=== PATIENT | male | born 1930 | race Caucasian/White ===

== ENCOUNTER 2017-04-07 06:37 | Inpatient (IN) | payer MEDICARE, OTHER, MEDICAID ==
[~2017-04-07] VITALS: Ht 177.8 cm; Wt 100.7 kg
[2017-04-07] VITALS (7 sets, daily range): BP systolic 134–159; BP diastolic 46–89
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
--- NOTE | ~2017-04-07 | WRIGHTHP ---
[place], [place] PATIENT HISTORY AND PHYSICAL EXAM NAME: GRECIA PIZARRO [facility] #: [id number] UNIT #: [id number] ROOM: 425 DOCTOR: RY ROSE MD BIRTHDATE: [birth year] DOS: 04/08/2017 HISTORY OF PRESENT ILLNESS: This patient is admitted to the hospital on 04/07/2017. The patient comes in with complaints of a high-grade fever of 101.3 at the [facility] with an oxygen saturation in the low 80s on room air. So the patient was sent out to the Emergency Room where he was evaluated and was thought to have possibility of acute bronchitis with acute exacerbation of COPD and was admitted. He denies having any complaints this morning, but wants to go back to the [facility]. Denies any chest pains or palpitations, did not have any abdominal pain, nausea, any emesis. PAST MEDICAL HISTORY: Significant for, 1. History of MRSA pneumonia for which he had a prolonged hospitalization last year. 2. Chronic atrial fibrillation, on long-term use of anticoagulant. 3. Parkinson's. 4. 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 5. Benign hypertension. 6. Protein-calorie malnutrition, moderate. 7. Frailty with multiple falls. MEDICATIONS: Medications that the patient is currently on are Flonase nasal spray, Xalatan eyedrops, eyedrops, timolol eyedrops, Eliquis 2.5 b.i.d., atorvastatin 20 daily, carbidopa levodopa 1 tablet q.i.d., citalopram 20 daily, Lasix 20 daily, metoprolol 50 twice a day, omeprazole 20 daily, pramipexole 0.25 t.i.d., vitamin D 400 units daily. SOCIAL HISTORY: Nonsmoker, does not use any alcohol. He is a resident of [facility]. PHYSICAL EXAMINATION: GENERAL: He is awake and alert and oriented. He has audible wheezing. VITAL SIGNS: Pressure is 140/68, pulse of 66, respirations 18, temperature 98.7. LUNGS: Diminished breath sounds, scattered wheezes. HEART: Regular. ABDOMEN: Obese, soft, nontender. EXTREMITIES: Without any edema. Some stasis dermatitis changes can be seen. ASSESSMENT AND PLAN: 1. The patient admitted with acute exacerbation of chronic obstructive pulmonary disease. The patient is placed on breathing treatments. We will add IV steroids and Pulmicort. Consult Dr. Vaughn for possibility of bronchoscopy. 2. Acute bronchitis with history of methicillin-resistant Staphylococcus aureus pneumonia, IV doxycycline will be ordered. Again, bronchoscopy will help give us a better specimen. 3. Chronic atrial fibrillation, on Eliquis, which will be continued. 4. Benign hypertension, controlled. [place], [place] PATIENT HISTORY AND PHYSICAL EXAM NAME: GRECIA PIZARRO UNIT #: [id number] ROOM: 425 DOCTOR: RY ROSE MD BIRTHDATE: [birth year] RY ROSE MD CM:HISPHYS:PATIENT HISTORY AND PHYSICAL EXAMINATION 0758 7 RY ROSE MD 04/08/17817 interface
--- NOTE | ~2017-04-07 | PR ---
[place], [place] PROGRESS NOTE NAME: GRECIA PIZARRO [facility] #: [id number] UNIT #: [id number] ROOM: 425 DOCTOR: FRANK EUBANKS MD BIRTHDATE: [birth year] DOS: 04/09/2017 SUBJECTIVE: The patient with complaints of shortness of breath and dyspnea with slightest exertion. OBJECTIVE: GENERAL APPEARANCE: The patient is alert and oriented x 3, in no visible distress. HEENT AND NECK: Exam within normal limits. CARDIOVASCULAR SYSTEM: Heart rate is regular in rate and rhythm. S1 and S2 normally audible. LUNGS: Decreased breath sounds, some expiratory wheezing. ABDOMEN: Soft, nontender. No obvious organomegaly. Bowel sounds are present. EXTREMITIES: Without significant cyanosis or edema. IMPRESSION: 1. Exacerbation of chronic obstructive pulmonary disease being treated with breathing treatments and bronchodilators. Dr. Vaughn is following. Bronchoscopy to be considered. 2. Methicillin-resistant staphylococcus aureus pneumonia. The patient on IV doxycycline. 3. Chronic atrial fibrillation. The patient anticoagulated with Eliquis. 4. Benign essential hypertension with controlled blood pressures. 5. Parkinson's disease and disability. The patient on physical therapy. FRANK EUBANKS MD CM:SAILAJATRANS [id number] FRANK EUBANKS MD 04/10/17 0949 interface
--- NOTE | ~2017-04-07 | DS ---
[place], [place] DISCHARGE SUMMARY NAME: GRECIA PIZARRO [facility] #: [id number] UNIT #: [id number] ROOM: 425 DOCTOR: FRANK EUBANKS MD BIRTHDATE: [birth year] DOS: 04/10/2017 DISCHARGE DIAGNOSES: 1. Exacerbation of chronic obstructive pulmonary disease, resolved with treatment. 2. Methicillin-resistant Staphylococcus aureus pneumonia, patient treated. 3. Chronic atrial fibrillation, the patient anticoagulated with Eliquis. 4. Benign essential hypertension. 5. Parkinson disease and advanced disability. 6. Moderate protein-calorie malnutrition. 7. Generalized weakness, adult failure to thrive with multiple falls. HOSPITAL COURSE: The patient was admitted by Dr. Cesar for high-grade fever from a snf and hypoxemia. 1. The patient was admitted and Dr. Vaughn, the scroll machine operator, followed the patient. The patient was treated with antibiotics and breathing improved. 2. MRSA positive pneumonia, treated with IV doxycycline. Bronchoscopy was repeated. 3. Chronic atrial fibrillation with controlled heart rate, patient anticoagulated with Eliquis. 4. Benign essential hypertension with controlled blood pressures. DISCHARGE MANAGEMENT: Lipitor 20 mg a day, DuoNebs q.i.d., Pulmicort 0.5 mg b.i.d., Comtan 200 mg q.i.d., furosemide 20 mg a day, citalopram 20 mg a day, Sinemet q.i.d. 25/100 mg, apixaban 2.5 mg b.i.d., Alphagan eye drops 0.2% b.i.d., pramipexole 0.25 mg t.i.d., omeprazole 20 mg a day, timolol 1 drop daily, Flonase 2 sprays each nostril once a day, Xalatan eye drops daily, metoprolol 50 mg b.i.d., doxycycline 100 mg b.i.d. for 10 days. FRANK EUBANKS MD CM:DISCHARG 1726 [id number] FRANK EUBANKS MD 04/12/17 0147 interface
--- NOTE | ~2017-04-07 | PR ---
[place], [place] PROGRESS NOTE NAME: GRECIA PIZARRO [facility] #: [id number] UNIT #: [id number] ROOM: 425 DOCTOR: MIKE CASTAÑEDA MD,MARIO BIRTHDATE: [birth year] DOS: 04/09/2017 PULMONARY PROGRESS NOTE SUBJECTIVE: He has been still noted with some chest congestion and coughing, but expectorating sputum. Denies symptoms of chest pain or abdominal pain. Denies symptoms of hemoptysis. OBJECTIVE: VITAL SIGNS: Normal temperature, respiratory rate 20, heart rate of 104, blood pressure 147/84. The pulse oxygen saturation on 2 liters nasal cannula 96% saturation recorded. HEENT: Examination shows head was atraumatic. Eyes nonicterus. NECK: Supple. CARDIOVASCULAR SYSTEM: S1, S2 audible. LUNGS: Noted without any wheezing or crackles at the present time. ABDOMEN: Soft, nontender. LABORATORY DATA: Blood culture for the patient on 07 of April for this patient noted no bacterial growth. Final culture results were pending. IMPRESSION: 1. The patient was noted with improving acute exacerbation of bronchial asthma and acute tracheobronchitis with the cough intermittently noted for the patient with gradual improvement. 2. History of chronic parkinsonism. PLAN OF TREATMENT: No changes from the pulmonary standpoint. The patient is responding to treatment. Continue bronchodilators, oxygen supplementation, other treatment plan as in progress. Usual care. Supportive therapy and other plan and management. MARIO MCKEON MD CM:PNTRANS [id number] MARIO CASTAÑEDA MD 04/10/17 0429 interface
[~2017-04-07 06:37] MED LIST: ALPHAGAN-P 0.2%5 ML OPH; AMIODARONE HCL200 MG PO; AMLODIPINE5 MG PO; ASACOL HD800 M1 PO; BACTROBAN22 TP; BETIMOL 2.5 ML2.5 M1 OPH; CARBIDOPA & LEV1 TA1 PO; CELESTONE PO; CHONDROITIN/GLU1 TA5 PO; COUMADIN2 MG PO; COUMADIN2.5 M1 PO; COUMADIN4 M2 PO; CRESTOR20 MG PO; Coumadin2 MG PO; DAYPRO600 M1 PO; DIPROSONE 0.05%15 GM T; ELIQUIS2.5 M1 PO; FERROUS SULFAT325 MG PO; FISH OIL 10001000 MG PO; FISH OIL1 IU PO; FLONASE ALLERG9.9 ML NAS; FUROSEMIDE20 MG PO; GUAIFENESIN600 MG PO; HYDROCODONE BIT1 T11 PO; KENALOG 0.5% CR15 GM PO; LASIX20 MG PO; LIPITOR20 MG PO; LIPITOR40 MG PO; LISINOPRIL40 MG PO; LOPRESSOR50 M1 PO; Lopressor25 MG PO; METFORMIN500 MG PO; METOPROLOL50 MG PO; MINER PO; MIRAPEX PO; MOM30 M1 PO; MUCINEX ER600 MG PO; MULTIVITAMIN PO; NATURE'S BLEND F1 MG PO; NOVOLOG10 ML IV; OMEPRAZOLE D/R20 MG PO; PERI-COLACE 501 TAB PO; PRAMIPEXOLE D0.25 MG PO; PRAVACHOL40 MG PO; REGLAN10 MG PO; SINEMET 25-1001 TA1 PO; STOOL SOFTENER PO; SULFASALAZINE500 M1 PO; VANCOCIN HCL IV; VANCOMYCIN HYD500 MG IV; VITAMIN D31 LIQ PO; VITAMIN E400 I1 PO; VITAMIN E400 IU PO; WARFARIN SOD5 MG PO; XALATAN 0.005%2.5 ML INTRAOC; ZOLOFT50 MG PO; [UNRECOGNIZED DRUG - OTHER] PO; [UNRECOGNIZED DRUG - OTHER] PO
[2017-04-07] MEDS ORDERED: CELEXA20 MG PO (07:00)
[2017-04-07] MEDS ORDERED: PRAMIPEXOLE D0.25 MG PO (07:01)
[2017-04-07] MEDS ORDERED: XALATAN 0.005%2.5 ML INTRAOC (07:01)
[2017-04-07] MEDS ORDERED: VITAMIN E400 UNI1 PO (07:01)
[2017-04-07] MEDS ORDERED: METOPROLOL TART50 M1 PO (07:02)
[2017-04-07] MEDS ORDERED: BRIMONIDINE TART5 ML OPH (07:02)
[2017-04-07] MEDS ORDERED: ATORVASTATIN CA20 M1 PO (07:03)
[2017-04-07] MEDS ORDERED: CARBIDOPA-LEVO1 EAC1 PO (07:04)
[2017-04-07] MEDS ORDERED: FUROSEMIDE20 M1 PO (07:05)
[2017-04-07] MEDS ORDERED: ELIQUIS2.5 M1 PO (07:05)
[2017-04-07] MEDS ORDERED: OMEPRAZOLE20 M2 PO (07:05)
[2017-04-07] MEDS ORDERED: FLUOCINONIDE0.05% T (07:06)
[2017-04-07] MEDS ORDERED: TIMOLOL MALEATE5 M2 OPH (07:07)
[2017-04-07] MEDS ORDERED: FLUTICASON0.05 MG/Ac NAS (07:07)
[2017-04-07] MEDS ORDERED: FISH OIL 1,001000 MG PO (07:08)
[2017-04-07 07:20] LABS: BASO % 0.4 % (0.0-1.0); EOS # 0.1 10*3/uL (0.0-0.4); EOS % 2.9 % (1.0-4.0); HEMATOCRIT 40.1 % (42.0-52.0); LYMPH # 0.7 10*3/uL (1.3-4.4); LYMPH % 15.4 % (27.0-41.0); MEAN CELL VOLUME 94.8 fl (80.0-94.0); MEAN CORPUSCULAR HGB 30.7 pg (27.0-31.0); MEAN CORPUSCULAR HGB CONC 32.4 g/dl (33.0-37.0); MEAN PLATELET VOLUME 9.6 fl (9.6-12.3); MONO # 0.4 10*3/uL (0.1-1.0); MONO % 7.9 % (3.0-9.0); NEUT # 3.5 10*3/uL (2.3-7.9); NEUT % 73.2 % (47.0-73.0); PLATELET COUNT AUTOMATED 189 10*3/uL (130-400); RED BLOOD COUNT 4.23 10*6/uL (4.50-5.90); RED CELL DISTRI WIDTH 15.3 % (0-14.5); WHITE BLOOD COUNT 4.8 10*3/uL (4.8-10.8)
[2017-04-07 07:27] LABS: INTERNATIONAL NORM RATIO 1.1 (2.0-3.5)
[2017-04-07 07:40] LABS: ALBUMIN 3.1 gm/dl (3.1-4.5); ALKALINE PHOSPHATASE 96 U/L (45-117); BILIRUBIN, TOTAL 0.8 mg/dl (0.2-1.0); BUN 15 mg/dl (7-24); CARBON DIOXIDE 29 mmol/L (21-32); CHLORIDE 104 mmol/L (98-107); EST GLOM FILT AFRICAN AMERICAN > 60 ml/min; GLUCOSE 107 mg/dL (65-99); POTASSIUM 4.1 mmol/L (3.5-5.1); SGOT/AST 21 IU/L (3-35); SGPT/ALT 9 U/L (12-78); SODIUM 139 mmol/L (136-145); TOTAL PROTEIN 8.1 gm/dL (6.4-8.2)
[2017-04-07 07:41] LABS: TROPONIN I < 0.015 ng/ml (<0.045)
[2017-04-07 10:04] LABS: BILIRUBIN NEGATIVE (NEGATIVE); BLOOD 3+ (NEGATIVE); CLARITY SL CLOUDY (CLEAR); COLOR YELLOW (YELLOW); GLUCOSE NEGATIVE (NEGATIVE); KETONE NEGATIVE (NEGATIVE); LEUKO ESTERASE NEGATIVE (NEGATIVE); NITRITE NEGATIVE (NEGATIVE); PROTEIN 1+ (NEGATIVE); SPECIFIC GRAVITY 1.015 (1.005-1.030)
[2017-04-07 10:14] LABS: RBC TNTC rbc/hpf (0-2); URINE REFLEX COMMENT YES (NO)
[2017-04-07 10:52] LABS: ABG BASE EXCESS 2.7 mmol/L (-2.0-2.0); ABG CO2 CONTENT 28.5 mmol/L (23-27); ABG HCO3 27.1 mmol/l (22-26); ABG TEMPERATURE 98.6 F (98.0-99.0); ARTERIAL BLOOD GAS PH 7.415 (7.35-7.45); ARTERIAL BLOOD GAS PO2 67.1 mmHg (80-90)
[2017-04-08 00:27] VITALS: BP 140/68
[2017-04-08 08:00] VITALS: BP 150/72
[2017-04-08 12:00] VITALS: BP 145/83
[2017-04-08 16:00] VITALS: BP 141/93
[2017-04-08 20:00] VITALS: BP 134/75
[2017-04-09] VITALS: BP 124/83
[2017-04-09 08:00] VITALS: BP 147/91
[2017-04-09 12:00] VITALS: BP 147/84
[2017-04-09 16:26] VITALS: BP 153/88
[2017-04-09 20:00] VITALS: BP 156/85
[2017-04-10] VITALS: BP 134/75
[2017-04-10 08:00] VITALS: BP 147/94
[2017-04-10 12:00] VITALS: BP 138/68
[2017-04-10 16:00] VITALS: BP 131/68
[2017-04-10] MEDS ORDERED: DOXYCYCLINE100 MG PO (17:08)
== END 2017-04-10 17:42 | disposition other institution (70) | DRG 177 ==
LOC: ED 06:37 → 4E 09:39 → EDHOLD 09:39 → 4E 09:55
PROVIDERS: Emergency Medicine Emergency Medical Services
DX: J15.212 Pneumonia due to Methicillin resistant Staphylococcus aureus (principal); J96.01 Acute respiratory failure with hypoxia; E44.0 Moderate protein-calorie malnutrition; L03.115 Cellulitis of right lower limb; I48.2 Chronic atrial fibrillation; G20 Parkinson's disease; J44.0 Chronic obstructive pulmonary disease with (acute) lower respiratory infection; I10 Essential (primary) hypertension; J44.1 Chronic obstructive pulmonary disease with (acute) exacerbation; R62.7 Adult failure to thrive; J20.9 Acute bronchitis, unspecified; R29.6 Repeated falls; Z96.651 Presence of right artificial knee joint; Z88.0 Allergy status to penicillin; Z88.2 Allergy status to sulfonamides; Z88.8 Allergy status to other drugs, medicaments and biological substances; Z88.6 Allergy status to analgesic agent; Z68.32 Body mass index [BMI] 32.0-32.9, adult

== ENCOUNTER → 2017-09-01 | Outpatient (CLI) | payer MEDICARE, OTHER, MEDICAID ==
[~2017-09-01] MED LIST changes: +ATORVASTATIN CA20 M1 PO; +BRIMONIDINE TART5 ML OPH; +CARBIDOPA-LEVO1 EAC1 PO; +CELEXA20 MG PO; +DOXYCYCLINE100 MG PO; +FISH OIL 1,001000 MG PO; +FLUOCINONIDE0.05% T; +FLUTICASON0.05 MG/Ac NAS; +FUROSEMIDE20 M1 PO; +METOPROLOL TART50 M1 PO; +OMEPRAZOLE20 M2 PO; +TIMOLOL MALEATE5 M2 OPH; +VITAMIN E400 UNI1 PO
== END | disposition home or self-care (01) ==
LOC: ORTHO 00:43
DX: M19.012 Primary osteoarthritis, left shoulder (principal)

== ENCOUNTER 2017-12-07 21:08 | Inpatient (IN) | payer MEDICARE, OTHER, MEDICAID ==
[~2017-12-07] VITALS: Ht 177.8 cm; Wt 95.8 kg
--- NOTE | ~2017-12-07 | PR ---
[place], [place] PROGRESS NOTE [id number] UN[facility] #: [id number] ROOM: 516 DOCTOR: SARAH SAHNI DO BIRTHDATE: [birth year] DOS: 12/10/2017 SUBJECTIVE: Patient is seen and examined at bedside. Patient was sitting upright in no acute distress. Patient reports that his breathing has dramatically improved since yesterday, that he no longer has issues with shortness of breath or cough or sputum production. No new complaints at this time. VITAL SIGNS: Temperature is 97.8, pulse is 115, respirations 22, blood pressure 160/86, pulse ox is 96% on 2 liters nasal cannula. LABORATORY DATA: White count 6.7, hemoglobin 13.9, hematocrit 44.7, platelets 158. Chemistries stable, no change from yesterday, glucose 289. Blood cultures remain negative. Urine culture positive for 25,000 colony-forming units of light gram-positive cocci. MRSA surveillance of the nares was positive. Chest x-ray from yesterday shows no acute cardiopulmonary. Exam degraded by the rotation to the right side. PHYSICAL EXAMINATION: GENERAL APPEARANCE: Patient is alert, awake and oriented x 3, no acute distress. HEENT: Eyes are clear with no injection. Nares are patent. Oral mucosa is moist. NECK: Supple, nontender. RESPIRATORY: Lungs are clear to auscultation bilaterally, no rales, rhonchi or wheezing. CARDIOVASCULAR: Regular rate and rhythm. S1, S2 noted. ABDOMEN: Soft, nontender with positive bowel sounds. EXTREMITIES: Lower extremities are clear of edema, erythema, cyanosis or clubbing. NEUROLOGIC: Patient has a noted parkinsonian tremor; however, no focal deficits are appreciated or acute changes on exam. ASSESSMENT AND PLAN: 1. Acute respiratory failure, likely secondary to fluid overload. Patient responded to diuresis appropriately and respiratory status improved dramatically after several hours of IV diuretics administered yesterday. Patient is asymptomatic at this time. 2. Parkinsonism. 3. Obesity. 4. Atrial fibrillation. 5. Hyperglycemia. TREATMENT PLAN: At this time, patient is on Mucinex. nebs were stopped and patient was started on DuoNebs with good results. Antibiotics were adjusted to Levaquin. Continue all supportive care. All medications were reviewed and adjusted today based on the patient's clinical presentation. We will continue to follow the patient. No change in current therapy at this time. Patient has stabilized medically and we will continue to follow. [place], [place] PROGRESS NOTE NAME: GRECIA PIZARRO [facility] UNIT #: [id number] ROOM: 6 DOCTOR: SARAH SAHNI DO BIRTHDATE: [birth year] SARAH SAHNI DO MARIO MCKEON MD CM:STEFANO 1321 12 SARAH SAHNI DO 12/10/17 231 interface
--- NOTE | ~2017-12-07 | PR ---
[place], [place] PROGRESS NOTE NAME: GRECIA PIZARRO [facility] #: [id number] UNIT #: [id number] ROOM: 516 DOCTOR: MIKE CASTAÑEDA MD,MARIO BIRTHDATE: [birth year] DOS: 12/10/2017 SUBJECTIVE: The patient was independently seen with [id number] encounter, history was confirmed. Physical examination performed. ____ was completed personally today's visit. Note done by the vp medical was approved. The patient has been showing significant reduction and improvement in respiratory symptom last 24 hours with reduction of the symptoms of shortness of breath, coughing, or chest congestion. He has been noted very comfortable. He was still noted with other tremor related to parkinsonism. PHYSICAL EXAMINATION: GENERAL: The patient was noted fully awake and alert, cooperative. VITAL SIGNS: Reviewed for the patient was essentially noted as mild tachycardia this morning at 8:00 and 15 beats per minute, blood pressure 160/86. Previous vital signs at midnight were normal. The pulse oxygen saturation recorded as 92% on 2 liters nasal cannula. LUNGS: Noted with minimal wheezing, no crackles. ABDOMEN: Soft, nontender. EXTREMITIES: Without any edema. LABORATORY DATA: CBC essentially noted grossly within normal limits. BMP: Glucose elevated at 289 with BUN 34. IMPRESSION: Progressive resolution improvement in the acute exacerbation of chronic obstructive pulmonary disease, bronchial asthma noted with current plan of management at this time. The patient has been asked about discharge and could be discharged home for the patient at the present time on intravenous corticosteroids for at least 1 week for Solu-Medrol b.i.d. oral antibiotics to be completed at nursing facility prior to switching the patient to tapering dose of prednisone for 12 days. The discharge instruction has been communicated to Dr. Dumont through the nursing staff. MARIO MCKEON MD CM:PNTRANS 1532 27 MRAIO CASTAÑEDA MD 12/10/17 7842 interface
--- NOTE | ~2017-12-07 | WRIGHTHP ---
[place], [place] PATIENT HISTORY AND PHYSICAL EXAM NAME: GRECIA PIZARRO [facility] #: [id number] UNIT #: [id number] ROOM: 516 DOCTOR: FRANK EUBANKS MD BIRTHDATE: [birth year] DOS: 12/07/2017 HISTORY OF PRESENT ILLNESS: The patient is an 87-year-old male with a past medical history of: 1. Chronic obstructive pulmonary disease. 2. Chronic atrial fibrillation, anticoagulated with Eliquis. 3. Benign essential hypertension. 4. Parkinson's disease and advanced disability. 5. Moderate protein-calorie malnutrition. 6. Generalized weakness and adult failure to thrive with history of recurrent falls. 7. Glaucoma. 8. POLLEN ALLERGIES. 9. Mixed hyperlipidemia. HOSPITAL COURSE: The patient presented to the Emergency Department sent over from care home with increased shortness of breath and feeling sick. In the ER, the patient evaluated and found to have acute exacerbation of significant underlying COPD and suspected pneumonitis, also chest congestion. The patient was recommended admission for the management. After admission, the patient has chest congestion and some rales and complains of shortness of breath and cough. No chest pain, no dizziness or fainting episode. No other GI or urinary symptoms. REVIEW OF SYSTEMS: LUNGS: Some chest congestion. CARDIOVASCULAR SYSTEM: No chest pains or palpitations. GASTROINTESTINAL: No nausea, vomiting, diarrhea, constipation. FAMILY HISTORY: Noncontributory. HOME MEDICATIONS: Omeprazole, Lasix, metoprolol, citalopram, apixaban, Lipitor, timolol eye drops with brimonidine eye drops b.i.d., breathing treatments, Sinemet, Flonase nasal spray, MetroGel, clindamycin. ALLERGIES: PENICILLIN, SULFA, ASPIRIN. PHYSICAL EXAMINATION: GENERAL: Awake, alert, oriented to place and person, in no visible distress. Generalized weakness. VITAL SIGNS: Blood pressure 130/82, heart rate of 103 beats per minute, breathing 20 times a minute, temperature 99 degrees Fahrenheit. HEENT AND NECK: Extraocular movements are intact. Sclerae are anicteric. Oral mucosa is moist and clean. No obvious facial weakness. Neck is supple without any lymphadenopathy. No thyromegaly. No JVD. No carotid arterial bruits. LUNGS: Somewhat decrease breath sounds, slight expiratory rhonchi all over. CARDIOVASCULAR SYSTEM: Heart rate is regular in rate and rhythm. S1 and S2 normally audible. No significant murmur or any other abnormal cardiac sounds. ABDOMEN: Soft, nontender. No obvious organomegaly. Bowel sounds are present. No obvious herniation. [place], [place] PATIENT HISTORY AND PHYSICAL EXAM NAME: GRECIA PIZARRO UNIT #: [id number] ROOM: 516 DOCTOR: FRANK EUBANKS MD BIRTHDATE: [birth year] EXTREMITIES: Without significant cyanosis or edema. Warm to touch. CENTRAL NERVOUS SYSTEM: Alert and oriented x 3. Cranial nerves II-XII are intact. Speech is normal. The patient is able to move all extremities. Normal muscle strength. Deep tendon reflexes are equal on both sides. Plantars were downgoing. IMPRESSION AND PLAN: 1. The patient with acute exacerbation of severe underlying chronic obstructive pulmonary disease, being treated with antibiotics, oxygen and corticosteroids along with bronchodilators. Dr. Vaughn, the building serviceman has been consulted to follow. 2. Type 2 diabetes mellitus and hyperglycemia. Blood sugars to be monitored and treated as necessary. I will keep him on no concentrated sweet diet. 3. Mixed hyperlipidemia. I will continue Lipitor. 4. Chronic atrial fibrillation with controlled heart rate. The patient is anticoagulated with apixaban. 5. Glaucoma eyedrops have been continued. 6. The patient with advanced Parkinson's disease and disability, treated with Sinemet and pramipexole. FRANK EUBANKS MD CM:HISPHYS:PATIENT HISTORY AND PHYSICAL EXAMINATION 1042 1128 FRANK EUBANKS MD 12/08/17 1128 interface
--- NOTE | ~2017-12-07 | EKG ---
[place], [place] ELECTROCARDIOGRAM REPORT NAME: GRECIA PIZARRO UNIT #: [id number] ROOM: 516 DOCTOR: JUVENTINO RANDT MD BIRTHDATE: [birth year] DOS: 12/07/2017 TIME: 2141. IMPRESSION: Atrial fibrillation with a controlled ventricular response, left anterior fascicular block, prolonged QT interval. Abnormal ECG. No prior EKGs to compare. Juventino Arndt MD CM:EKGRPT:ELECTROCARDIOGRAM REPORT 1909 19 JUVENTINO ARNDT MD
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
--- NOTE | ~2017-12-07 | PR ---
[place], [place] PROGRESS NOTE NAME: GRECIA PIZARRO [facility] #: [id number] UNIT #: [id number] ROOM: 516 DOCTOR: FRANK EUBANKS MD BIRTHDATE: [birth year] DOS: 12/09/2017 SUBJECTIVE: The patient remains about the same, very weak. OBJECTIVE: GENERAL APPEARANCE: The patient is alert and oriented x 3, in no visible distress. Generalized weakness. VITAL SIGNS: Blood pressure 138/86, heart rate 97 beats per minute, breathing 22 times per minute, temperature 98 degrees Fahrenheit. HEENT AND NECK: Exam within normal limits. CARDIOVASCULAR SYSTEM: Heart rate is regular in rate and rhythm. S1 and S2 normally audible. LUNGS: Clear to auscultation. ABDOMEN: Soft, nontender. No obvious organomegaly. Bowel sounds are present. EXTREMITIES: Without significant cyanosis or edema. IMPRESSION: 1. The patient has acute urinary retention with 1400 mL collected from the Pinto catheter after it was placed. I will start him on Flomax. No urologist available for consult at the hospital. 2. Urinary tract infection with light gram-positive cocci. I will wait for final culture results. 3. Acute exacerbation of severe underlying chronic obstructive pulmonary disease, being treated with corticosteroids, oxygen, and antibiotics and Dr. Vaughn, the certified real estate appraiser is also following. 4. Type 2 diabetes mellitus with blood sugars reasonably under control. Blood sugar of 165. 5. Parkinson's disease and advanced disability. The patient remains on Sinemet. 6. Chronic atrial fibrillation with controlled heart rates. The patient anticoagulated with apixaban. FRANK EUBANKS MD CM:PNTRANS [id number] FRANK EUBANKS MD 12/09/172329 interface
--- NOTE | ~2017-12-07 | DS ---
[place], [place] DISCHARGE SUMMARY NAME: GRECIA PIZARRO [facility] #: [id number] UNIT #: [id number] ROOM: 516 DOCTOR: FRANK EUBANKS MD BIRTHDATE: [birth year] DOS: 12/10/2017 DISCHARGE DIAGNOSES: 1. The patient with acute urinary retention, has a Pinto catheter now. 2. Urinary tract infection with light gram-positive cocci, treated with Levaquin. 3. Acute exacerbation of chronic obstructive pulmonary disease, improved with treatment. 4. Known type 2 diabetes mellitus. 5. Parkinson's disease and disability. 6. Chronic obstructive pulmonary disease. 7. Chronic atrial fibrillation, anticoagulated with Eliquis. 8. Benign essential hypertension. 9. Moderate protein calorie malnutrition. 10. Generalized weakness, adult failure to thrive and recurrent falls. 11. Glaucoma. 12. POLLEN allergies. 13. Mixed hyperlipidemia. HOSPITAL COURSE: The patient was brought to the Emergency Department, sent over from halfway with a comfort care code status for being short of breath and feeling sick. The patient was diagnosed as having acute exacerbation of COPD and suspected pneumonitis and chest congestion. The patient was admitted and treated with antibiotics, oxygen, bronchodilators and Dr. Vaughn, the dyer assistant also followed him. 1. Type 2 diabetes mellitus with some elevation of blood sugars secondary to use of corticosteroids. 2. Corticosteroid-induced hyperglycemia, treated with insulin. 3. Moderate protein calorie malnutrition with an albumin level of 2.8. The patient followed by Dietary. 4. Parkinson's disease with advanced disability, multiple falls and adult failure to thrive. We took fall precautions, use an air mattress and every 2 hour turning. The patient remains on Sinemet. 5. Acute urinary retention with 1400 mL of urine collected in the bag after he was catheterized. We will leave the Pinto catheter in for a week and then try to discontinue it with bladder training. The patient appears to have BPH with urine retention, which is now being treated with Flomax. LABORATORY DATA: Normal serum electrolytes. Albumin level of 2.8. No leukocytosis. Normal CBC. Blood cultures were negative. Urine cultures, final results are pending. They grew 25,000 colonies of gram-positive cocci, very light. Chest x-ray showed no acute changes. DISCHARGE MANAGEMENT: Furosemide 20 mg a day, Flomax 0.4 mg daily, Medrol Dosepak, Mirapex 0.25 mg t.i.d., citalopram 40 mg a day, timolol eyedrops 1 drop each eye twice a day, brimonidine eye which is Alphagan eye drops 0.2% one drop b.i.d., Lipitor 20 mg daily, Lidex 0.05% ointment to skin as needed for outbreaks of psoriasis, Sinemet 25/100 mg q.i.d., omeprazole 20 mg daily, metoprolol 50 mg b.i.d., apixaban 2.5 mg b.i.d., DuoNeb q.i.d., MetroGel to affected skin b.i.d. [place], [place] DISCHARGE SUMMARY NAME: GRECIA PIZARRO UNIT #: [id number] ROOM: [facility] DOCTOR: FRANK EUBANKS MD BIRTHDATE: [birth year] FRANK EUBANKS MD CM:DISCHARG [id number] FRANK EUBANKS MD 12/10/17 1059 interface
--- NOTE | ~2017-12-07 | CON ---
[place], [place] REPORT OF CONSULTATION NAME: GRECIA PIZARRO [facility] #: [id number] UNIT #: [id number] ROOM: 516 DOCTOR: SARAH SAHNI DO BIRTHDATE: [birth year] DOS: 12/09/2017 CHIEF COMPLAINT: Shortness of breath. HISTORY OF PRESENT ILLNESS: This is an 87-year-old male who came in from a [facility] to the ER with a complaint of shortness of breath and cough that had been ongoing for a couple of days. The patient was admitted on the under the service of Dr. Dumont and Dr. Cesar. The patient was admitted with an acute exacerbation of COPD and a suspected CHF exacerbation as well with chest congestion. The patient improved for the first 24 hours; however, on day 2 he did develop worsening shortness of breath and cough and for this reason the pulmonary team was consulted for optimization of his respiratory care. The patient was seen and examined on 12/09/2017 in the morning. The patient continued to complain of cough. He was unable to get anything up out of his lungs with shortness of breath. Otherwise, no new complaints. PAST MEDICAL HISTORY: 1. Chronic obstructive pulmonary disease. 2. Chronic AFib, anticoagulated on Eliquis. 3. Hypertension. 4. Parkinson's disease. 5. Moderate protein calorie malnutrition. 6. Generalized weakness with failure to thrive. 7. Glaucoma. 8. Hyperlipidemia. 9. History of recurrent falls. 10. History of pancolitis, diarrhea. 11. History of MRSA pneumonia. 12. Coronary artery disease. PAST SURGICAL HISTORY: Colonoscopy, right total knee replacement, cystoscopy, right shoulder surgery, lithotripsy, right VATS procedure for medical management of complicated pleural fluid and MRSA. FAMILY HISTORY: Positive for cancer, NH, diabetes and coronary artery disease. SOCIAL HISTORY: The patient is , has 2 children. Denies history of alcohol or drug abuse. The patient has been in a nursing facility for over 20 years. HOME MEDICATIONS: Budesonide, DuoNeb, latanoprost, fluticasone propionate, brimonidine, timolol, acetaminophen, Eliquis, atorvastatin, Sinemet, citalopram, Lasix, Levaquin, metoprolol, omeprazole, pramipexole, vitamin E, Lidex, metronidazole cream. ALLERGIES: PENICILLINS, CANTALOUPE, SULFA, ASPIRIN, CITRIC ACID, ASPARTAME. LABORATORY DATA: White count 7.6, hemoglobin 14.0, hematocrit 44.8, platelet count 163. Chemistry: Sodium 143, potassium 4.2, chloride 105, carbon dioxide 33, BUN 30, creatinine 1, glucose 165, calcium 9.7. Nares were positive for [place], [place] REPORT OF CONSULTATION NAME: GRECIA PIZARRO UNIT #: [id number] ROOM: 516 DOCTOR: SARAH SAHNI DO BIRTHDATE: [birth year] MRSA. Urine was positive with 25,000 colony forming units of light gram-positive cocci. Blood cultures remain negative. Chest x-ray on the showed no radiographic evidence of acute cardiopulmonary process or significant interval change from prior. Chest x-ray from 12/09/2017 this morning is still pending. PHYSICAL EXAMINATION: VITAL SIGNS: Temperature 98.3, pulse is 97, respiratory rate 20, blood pressure 142/80, pulse ox is 96% on 2 liters nasal cannula. GENERAL APPEARANCE: The patient is alert and oriented. He is in mild to moderate respiratory distress. HEENT: Head is atraumatic, normocephalic. Eyes are clear. No injection. Nares are patent. Mucous membranes are moist. NECK: Supple, nontender. CARDIOVASCULAR: S1, S2 appreciated. Irregular rate and rhythm. No murmurs, gallops or rubs. PULMONARY: Rales appreciated in all lung shah. In the bases is worse than apices. No wheezing. No rhonchi. ABDOMEN: Soft and nontender with positive bowel sounds. EXTREMITIES: No edema. No erythema. No clubbing, cyanosis. NEUROLOGIC: No focal deficits appreciated. Parkinsonian tremor. Cranial nerves are grossly intact. SKIN: No rashes. No erythema. REVIEW OF SYSTEMS: GENERAL: The patient denies any dizziness, lightheadedness, fever or chills. HEENT: No discharge. No dysphagia. No postnasal drip. CARDIAC: Denies palpitations or chest pain. RESPIRATORY: The patient complains of shortness of breath and cough which is nonproductive. ABDOMEN: The patient has no complaints of nausea, vomiting, diarrhea, constipation, change in bowel or bladder habits. EXTREMITIES: No joint pain. SKIN: The patient complains of no rashes. IMPRESSION: 1. Acute on chronic respiratory failure with elements of chronic obstructive pulmonary disease exacerbation and congestive heart failure exacerbation. 2. Chronic atrial fibrillation, anticoagulated with Eliquis. 3. Hypertension. 4. Parkinson's. 5. Protein calorie malnutrition. 6. Generalized weakness. 7. Glaucoma 8. Diabetes. PLAN: The patient was switched to IV Lasix b.i.d. Chest x-ray is pending. Antibiotics were adjusted. Steroids were increased from b.i.d. to t.i.d. with DuoNeb being added and AccuNeb being discontinued. We will continue to monitor patient's respiratory status. [place], [place] REPORT OF CONSULTATION NAME: GRECIA PIZARRO UNIT #: [id number] ROOM: 6 DOCTOR: SARAH SAHNI DO BIRTHDATE: [birth year] Thank you for this consult. SARAH SAHNI DO MARIO MCKEON MD CM:CONSTR:REPORT OF CONSULTATION 1238 12/09/17 1909 interface
[~2017-12-07 21:08] MED LIST changes: -CARBIDOPA-LEVO1 EAC1 PO; +CARBIDOPA-LEVO1 EAC6 PO; +DUONEB 3 MG/3 ML3 M1 INH; -FLUTICASON0.05 MG/Ac NAS; +FLUTICASONE P15.8 ML NAS; +Ipratropium Brom3 ML INH; +LEVOFLOXACIN500 MG PO
[2017-12-07 21:53] LABS: BASO % 0.2 % (0.0-1.0); HEMATOCRIT 42.7 % (42.0-52.0); HEMOGLOBIN 13.6 g/dl (14.0-18.0); LYMPH # 0.5 10*3/uL (1.3-4.4); MEAN CORPUSCULAR HGB 31.9 pg (27.0-31.0); MEAN CORPUSCULAR HGB CONC 31.9 g/dl (33.0-37.0); MEAN PLATELET VOLUME 11.2 fl (9.6-12.3); MONO # 0.5 10*3/uL (0.1-1.0); NEUT # 4.2 10*3/uL (2.3-7.9); NEUT % 81.4 % (47.0-73.0); PLATELET COUNT AUTOMATED 162 10*3/uL (130-400); RED BLOOD COUNT 4.27 10*6/uL (4.50-5.90); WHITE BLOOD COUNT 5.1 10*3/uL (4.8-10.8)
[2017-12-07 22:11] LABS: ALKALINE PHOSPHATASE 117 U/L (45-117); BUN 32 mg/dl (7-24); CHLORIDE 103 mmol/L (98-107); CREATININE 1.31 mg/dL (0.70-1.30); POTASSIUM 4.3 mmol/L (3.5-5.1); SGOT/AST 38 IU/L (3-35); SGPT/ALT 13 U/L (12-78); SODIUM 142 mmol/L (136-145); TOTAL PROTEIN 7.7 gm/dL (6.4-8.2); TROPONIN I 0.025 ng/ml (<0.045)
[2017-12-07 22:15] VITALS: BP 137/104
[2017-12-07 23:51] LABS: BILIRUBIN NEGATIVE (NEGATIVE); BLOOD 1+ (NEGATIVE); CLARITY SL CLOUDY (CLEAR); COLOR YELLOW (YELLOW); GLUCOSE 1+ (NEGATIVE); KETONE NEGATIVE (NEGATIVE); LEUKO ESTERASE NEGATIVE (NEGATIVE); NITRITE NEGATIVE (NEGATIVE); PH 5.5 (5.0-9.0); UROBILINOGEN 0.2 E.U./dl (0.2-1.0)
[2017-12-08 00:26] LABS: WBC 0-2 wbc/hpf (0-5)
[2017-12-08 00:27] LABS: BACTERIA TRACE
[2017-12-08 00:46] VITALS: BP 140/77
[2017-12-08 01:15] VITALS: BP 130/82
[2017-12-08] MEDS ORDERED: CITALOPRAM40 MG PO (01:32)
[2017-12-08] MEDS ORDERED: PULMICORT0.25 MG/2 INH (01:38)
[2017-12-08] MEDS ORDERED: METRONIDAZOLE45 GM T (01:45)
[2017-12-08] MEDS ORDERED: ARTHRITIS PAIN650 M3 PO (01:47)
[2017-12-08] MEDS ORDERED: ELIQUIS2.5 M1 PO (01:50)
[2017-12-08] MEDS ORDERED: LIDEX 0.05% CRE15 GM T (01:57)
[2017-12-08] MEDS ORDERED: LEVOFLOXACIN500 MG PO (02:35)
[2017-12-08] MEDS ORDERED: LASIX20 MG PO (02:40)
[2017-12-08 08:00] VITALS: BP 180/78
[2017-12-08 12:00] VITALS: BP 167/78
[2017-12-08 16:00] VITALS: BP 132/80
[2017-12-08 20:00] VITALS: BP 145/96
[2017-12-09] VITALS: BP 130/107
[2017-12-09 08:00] VITALS: BP 142/80
[2017-12-09 09:24] LABS: HEMATOCRIT 44.8 % (42.0-52.0); MEAN CELL VOLUME 101.6 fl (80.0-94.0); MEAN CORPUSCULAR HGB 31.7 pg (27.0-31.0); MEAN CORPUSCULAR HGB CONC 31.3 g/dl (33.0-37.0); PLATELET COUNT AUTOMATED 163 10*3/uL (130-400); RED BLOOD COUNT 4.41 10*6/uL (4.50-5.90); WHITE BLOOD COUNT 7.6 10*3/uL (4.8-10.8)
[2017-12-09 09:36] LABS: BUN 30 mg/dl (7-24); CHLORIDE 105 mmol/L (98-107); CREATININE 1.05 mg/dL (0.70-1.30); POTASSIUM 4.2 mmol/L (3.5-5.1); SODIUM 143 mmol/L (136-145)
[2017-12-09 09:47] LABS: ATYPICAL LYMPHS 2 % (0-0); PLATELET SUFFICIENCY NORMAL (NORMAL); TOTAL CELLS COUNTED 100 #CELLS
[2017-12-09 12:00] VITALS: BP 138/86
[2017-12-09 16:00] VITALS: BP 151/81
[2017-12-09 20:00] VITALS: BP 143/81
[2017-12-10] VITALS: BP 118/72
[2017-12-10 07:29] LABS: HEMATOCRIT 44.7 % (42.0-52.0); HEMOGLOBIN 13.9 g/dl (14.0-18.0); MEAN CELL VOLUME 102.8 fl (80.0-94.0); MEAN CORPUSCULAR HGB CONC 31.1 g/dl (33.0-37.0); MEAN PLATELET VOLUME 11.5 fl (9.6-12.3); PLATELET COUNT AUTOMATED 158 10*3/uL (130-400); RED BLOOD COUNT 4.35 10*6/uL (4.50-5.90); RED CELL DISTRI WIDTH 14.6 % (0-14.5); WHITE BLOOD COUNT 6.7 10*3/uL (4.8-10.8)
[2017-12-10 07:43] LABS: ALBUMIN 2.8 gm/dl (3.1-4.5); BUN 34 mg/dl (7-24); CHLORIDE 101 mmol/L (98-107); CREATININE 1.12 mg/dL (0.70-1.30); SGOT/AST 32 IU/L (3-35); SODIUM 143 mmol/L (136-145)
[2017-12-10 07:46] LABS: SGPT/ALT 25 U/L (12-78); TOTAL PROTEIN 7.4 gm/dL (6.4-8.2)
[2017-12-10 07:47] LABS: ALKALINE PHOSPHATASE 89 U/L (45-117)
[2017-12-10 08:00] VITALS: BP 160/86
[2017-12-10 08:11] LABS: ATYPICAL LYMPHS 1 % (0-0); PLATELET SUFFICIENCY NORMAL (NORMAL); TOTAL CELLS COUNTED 100 #CELLS
== END 2017-12-10 13:10 | disposition other institution (70) | DRG 189 ==
LOC: ED 21:08 → EDHOLD 23:46 → 5E 23:46
PROVIDERS: Internal Medicine; Internal Medicine Critical Care Medicine; Student in an Organized Health Care Education/Training Program
DX: J96.20 Acute and chronic respiratory failure, unspecified whether with hypoxia or hypercapnia (principal); E44.0 Moderate protein-calorie malnutrition; E11.65 Type 2 diabetes mellitus with hyperglycemia; G20 Parkinson's disease; J44.1 Chronic obstructive pulmonary disease with (acute) exacerbation; I48.2 Chronic atrial fibrillation; I11.0 Hypertensive heart disease with heart failure; I50.9 Heart failure, unspecified; E66.9 Obesity, unspecified; N39.0 Urinary tract infection, site not specified; E78.2 Mixed hyperlipidemia; H35.30 Unspecified macular degeneration; H40.9 Unspecified glaucoma; I25.10 Atherosclerotic heart disease of native coronary artery without angina pectoris; R62.7 Adult failure to thrive; Z96.651 Presence of right artificial knee joint; B96.89 Other specified bacterial agents as the cause of diseases classified elsewhere; Z66 Do not resuscitate; Z51.5 Encounter for palliative care; Z79.01 Long term (current) use of anticoagulants; Z79.899 Other long term (current) drug therapy; Z88.6 Allergy status to analgesic agent; Z88.0 Allergy status to penicillin; Z88.2 Allergy status to sulfonamides; Z86.14 Personal history of Methicillin resistant Staphylococcus aureus infection; Z87.01 Personal history of pneumonia (recurrent); Z80.9 Family history of malignant neoplasm, unspecified; Z82.49 Family history of ischemic heart disease and other diseases of the circulatory system; Z83.3 Family history of diabetes mellitus; Z88.8 Allergy status to other drugs, medicaments and biological substances; Z68.30 Body mass index [BMI] 30.0-30.9, adult; T38.0X5A Adverse effect of glucocorticoids and synthetic analogues, initial encounter; Y92.89 Other specified places as the place of occurrence of the external cause

== ENCOUNTER 2017-12-14 10:27 | Inpatient (IN) | payer OTHER, MEDICARE, MEDICAID ==
[2017-12-14] VITALS (9 sets, daily range): BP systolic 92–159; BP diastolic 49–114
[~2017-12-14] VITALS: Ht 182.8 cm; Wt 86.2 kg
--- NOTE | ~2017-12-14 | PR ---
[place], [place] PROGRESS NOTE [facility]: [id number] UNIT #: [id number] ROOM: 523 DOCTOR: RY ROSE MD BIRTHDATE: [birth year] DOS: 12/16/2017 SUBJECTIVE: The patient is about the same, continues to struggle. OBJECTIVE: VITAL SIGNS: Graphic trend shows a pressure of 103/71, pulse of 149, respirations 18, temperature 103.0. LUNGS: Clear. HEART: Regular. LABORATORY DATA: Blood culture shows E. coli. Urine culture shows Morganella morganii. ASSESSMENT AND PLAN: Urosepsis with end-stage unresponsive terminal condition that he is on. The patient continues to struggle. I discussed with the patient's daughter in detail. The plan is to increase his morphine to 7.5 mg per hour and keep him more comfortable. RY ROSE MD CM:PNTRANS [id number] RY ROSE MD 12/16/17 1519 interface
--- NOTE | ~2017-12-14 | PR ---
[place], [place] PROGRESS NOTE NAME: GRECIA PIZARRO UNIT #: [id number] ROOM: 523 DOCTOR: FRANK EUBANKS MD BIRTHDATE: [birth year] DOS: 12/19/2017 SUBJECTIVE: Patient for end-of-life care with hospice consult, appears comfortable with oxygen. OBJECTIVE: VITAL SIGNS: Blood pressure 87/41, heart rate of 114 beats per minute, breathing 16 times per minute, temperature 99 degrees Fahrenheit. GENERAL: Patient unresponsive, remains on oxygen. HEENT AND NECK: Exam within normal limits. CARDIOVASCULAR SYSTEM: Heart rate is regular in rate and rhythm. S1 and S2 normally audible. LUNGS: Clear to auscultation. ABDOMEN: Soft, nontender. No obvious organomegaly. Bowel sounds are present. EXTREMITIES: Without significant cyanosis or edema. IMPRESSION: 1. Patient with sepsis and recent urinary infection and advanced failure to thrive, remains under care of hospice and he is unresponsive and in terminal condition, appears in no distress. 2. Urine infection grew Morganella morganii. 3. Parkinson's disease and advanced disability. 4. Recent pneumonia. FRANK EUBANKS MD CM:SAILAJATRANS 1752 1 FRANK EUBANKS MD 12/20/17 0111 interface
--- NOTE | ~2017-12-14 | PR ---
[place], [place] PROGRESS NOTE NAME[id number] UNIT #: [id number] ROOM: 523 DOCTOR: RY ROSE MD BIRTHDATE: [birth year] DOS: 12/20/2017 SUBJECTIVE: The patient is about the same. He is hypotensive, slightly tachycardic, but mostly appears to be comfortable except for occasional restlessness. OBJECTIVE: LUNGS: Diminished breath sounds, scattered rhonchi and rales. HEART: Regular. ABDOMEN: Obese, soft. EXTREMITIES: Unchanged. ASSESSMENT AND PLAN: 1. 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 The patient is on IV morphine. The dosage will be increased. 2. 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 Continue supportive and symptomatic care. RY ROSE MD CM:PNTRANS [phone] RY ROSE MD 12/20/17 0908 interface
--- NOTE | ~2017-12-14 | PR ---
[place], [place] PROGRESS NOTE [id number] UNIT #: [id number] ROOM: 523 DOCTOR: FRANK EUBANKS MD BIRTHDATE: [birth year] DOS: 12/18/2017 SUBJECTIVE: The patient is unresponsive with some breathing difficulty and wearing oxygen. OBJECTIVE: VITAL SIGNS: Blood pressure 85/41, heart rate of 116 beats per minute, breathing 18 times per minute, temperature 99.5 degrees Fahrenheit. GENERAL: The patient is unresponsive, moderately obese, not waking up. IMPRESSION: 1. The patient with urinary tract infection and sepsis, for end-of-life care with hospice. He is unresponsive in a terminal condition and being kept comfortable with a morphine infusion. The patient's urine cultures grew Morganella morganii. 2. History of Parkinson's disease and disability. 3. History of adult failure to thrive. 4. Recent pneumonia. FRANK EUBANKS MD CM:PNTRANS 19 FRANK EUBANKS MD 12/19/17 0837 interface
--- NOTE | ~2017-12-14 | WRIGHTHP ---
[place], [place] PATIENT HISTORY AND PHYSICAL EXAM NAME: [id number] UNIT #: [id number] ROOM: 523 DOCTOR: RY ROSE MD BIRTHDATE: [birth year] DOS: 12/14/2017 HISTORY OF PRESENT ILLNESS: This patient is very well known to us, resident of [facility], had increased difficulty breathing, so was sent out to the Emergency Room. By the time he arrived at the Emergency Room, he was quite obtunded and lethargic and mostly unresponsive with continued high-grade fevers. Dr. Tawanna Lyon in the Emergency Room did speak to the patient's family and they agreed on hospice care and the patient has been admitted for inpatient hospice care. The patient this morning is fairly unresponsive to call or noxious stimuli. His respirations are quite moist. His daughter is at his bedside. He was recently admitted to the hospital and was treated for congestive heart failure, pneumonitis and UTI and he was just released to a assisted just 3 days prior to this admission. PAST MEDICAL HISTORY: Significant for: 1. COPD. 2. History of recent hospitalization with sepsis and UTI. He had urinary retention, had had a Pinto catheter placed. 3. History of a recent diagnosis of pneumonitis. The patient is currently not on any antibiotics. 4. Parkinson's disease. 5. Adult failure to thrive. MEDICATIONS: He is on Lasix, Flomax, was on Medrol Dosepak, citalopram, Mirapex, Timolol eyedrop, eyedrops, Lipitor, Lidex, Sinemet, omeprazole, metoprolol, apixaban, DuoNebs and MetroGel. SOCIAL HISTORY: Nonsmoker, does not use any alcohol. Resident of the assisted. PHYSICAL EXAMINATION: GENERAL: He is unresponsive, appears to be slightly agitated. VITAL SIGNS: Graphic trends shows a pressure of 114/56, pulse of 113, respirations 24, T-max of 102.9. LUNGS: Diminished breath sounds, few scattered rhonchi heard. HEART: Regular, tachycardic. ABDOMEN: Soft, scaphoid. EXTREMITIES: Without any edema, quite a lot of mottling noticed in his lower legs. LABORATORY DATA: Urine culture shows E. coli. Blood culture shows gram-negative bacilli, which could be an E. coli. of the nares positive for MRSA. ASSESSMENT AND PLAN: 1. Sepsis with gram-negative bacilli, possibly from primary source of infection as the urine. Urine culture is showing E. coli. The patient has been placed on IV antibiotics. 2. Family has agreed on hospice care. Hospice arrangements have been made. The patient is started on pain medications to be kept comfortable. Discussed [place], [place] PATIENT HISTORY AND PHYSICAL EXAM NAME: GRECIA PIZARRO UNIT #: [id number] ROOM: 523 DOCTOR: RY ROSE MD BIRTHDATE: [birth year] the patient's condition in detail with the patient's daughter. 3. Adult failure to thrive, could start him on lorazepam if he continues to have agitation and anxiety. RY ROSE MD CM:HISPHYS:PATIENT HISTORY AND PHYSICAL EXAMINATION 57 [id number] RY ROSE MD 12/15/172223 interface
--- NOTE | ~2017-12-14 | EKG ---
[employer], [place] ELECTROCARDIOGRAM REPORT NAME: GRECIA PIZARRO UNIT #: [id number] ROOM: 523 DOCTOR: MIKE CASTAÑEDA MD,MARIO BIRTHDATE: [birth year] DOS: 12/14/2017 TIME: Done at 10:56 a.m. Atrial fibrillation with rapid ventricular response was noted. Heart rate 139 beats per minute. 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 MARIO MCKEON MD CM:EKGRPT:ELECTROCARDIOGRAM REPORT [id number] MARIO CASTAÑEDA MD
[~2017-12-14 10:27] MED LIST changes: +ARTHRITIS PAIN650 M3 PO; +CITALOPRAM40 MG PO; +LIDEX 0.05% CRE15 GM T; +METRONIDAZOLE45 GM T; +PULMICORT0.25 MG/2 INH
[2017-12-14 11:06] LABS: ABG BASE EXCESS 4.6 mmol/L (-2.0-2.0); ABG HCO3 27.1 mmol/l (22-26); ABG O2 SATURATION 94.6 % (95-97); ARTERIAL BLOOD GAS PCO2 41.2 mmHg (35-45); ARTERIAL BLOOD GAS PH 7.45 (7.35-7.45); ARTERIAL BLOOD GAS PO2 87.1 mmHg (80-90)
[2017-12-14 11:14] LABS: BASO % 0.1 % (0.0-1.0); EOS % 0.1 % (1.0-4.0); HEMATOCRIT 47.3 % (42.0-52.0); HEMOGLOBIN 15.2 g/dl (14.0-18.0); LYMPH # 0.9 10*3/uL (1.3-4.4); LYMPH % 5.7 % (27.0-41.0); MEAN CELL VOLUME 98.3 fl (80.0-94.0); MEAN CORPUSCULAR HGB 31.6 pg (27.0-31.0); MEAN CORPUSCULAR HGB CONC 32.1 g/dl (33.0-37.0); MEAN PLATELET VOLUME 11.5 fl (9.6-12.3); MONO # 0.6 10*3/uL (0.1-1.0); MONO % 3.6 % (3.0-9.0); NEUT # 14.1 10*3/uL (2.3-7.9); NEUT % 89.1 % (47.0-73.0); PLATELET COUNT AUTOMATED 172 10*3/uL (130-400); RED BLOOD COUNT 4.81 10*6/uL (4.50-5.90); RED CELL DISTRI WIDTH 14.6 % (0-14.5); WHITE BLOOD COUNT 15.8 10*3/uL (4.8-10.8)
[2017-12-14 11:23] LABS: ACT PARTIAL THROMBO TIME 33.8 SECONDS (20.8-31.5); INTERNATIONAL NORM RATIO 1.3 (2.0-3.5)
[2017-12-14 11:30] LABS: ALBUMIN 2.6 gm/dl (3.1-4.5); CREATININE 1.92 mg/dL (0.70-1.30); POTASSIUM 4.6 mmol/L (3.5-5.1); TOTAL PROTEIN 7.7 gm/dL (6.4-8.2); TROPONIN I 0.018 ng/ml (<0.045)
[2017-12-14 11:58] LABS: BILIRUBIN 1+ (NEGATIVE); BLOOD 3+ (NEGATIVE); CLARITY CLOUDY (CLEAR); COLOR YELLOW (YELLOW); GLUCOSE TRACE (NEGATIVE); KETONE TRACE (NEGATIVE); LEUKO ESTERASE 2+ (NEGATIVE); NITRITE POSITIVE (NEGATIVE); PH 8.5 (5.0-9.0); SPECIFIC GRAVITY 1.015 (1.005-1.030)
[2017-12-14 12:08] LABS: BACTERIA 4+; RBC TNTC rbc/hpf (0-2); WBC TNTC wbc/hpf (0-5)
[2017-12-15] VITALS: BP 112/65
[2017-12-15 02:00] VITALS: BP 112/57
[2017-12-15 09:00] VITALS: BP 85/40
[2017-12-15 17:24] VITALS: BP 113/56
[2017-12-16] VITALS: BP 103/71
[2017-12-16 08:00] VITALS: BP 96/60
[2017-12-16 10:00] VITALS: BP 90/50
[2017-12-16 17:40] VITALS: BP 80/52
[2017-12-16 21:24] VITALS: BP 82/54
[2017-12-17] VITALS: BP 88/46
[2017-12-17 08:00] VITALS: BP 105/49
[2017-12-17 17:18] VITALS: BP 93/63
[2017-12-17 20:00] VITALS: BP 93/63
[2017-12-18] VITALS: BP 107/84
[2017-12-18 08:00] VITALS: BP 136/98
[2017-12-18 12:00] VITALS: BP 117/86
[2017-12-18 16:00] VITALS: BP 85/41
[2017-12-18 20:00] VITALS: BP 90/50
[2017-12-19 08:30] VITALS: BP 90/40
[2017-12-19 16:00] VITALS: BP 87/41
[2017-12-19 20:00] VITALS: BP 134/50; BP 73/38
[2017-12-20] VITALS: BP 72/33
[2017-12-20 08:00] VITALS: BP 72/40
[2017-12-20 16:00] VITALS: BP 79/40
== END 2017-12-20 23:49 | disposition expired | DRG 872 ==
LOC: ED 10:27 → EDHOLD 15:03 → 5E 15:03
PROVIDERS: Emergency Medicine
DX: A41.59 Other Gram-negative sepsis (principal); G20 Parkinson's disease; I50.9 Heart failure, unspecified; I11.0 Hypertensive heart disease with heart failure; N39.0 Urinary tract infection, site not specified; B96.4 Proteus (mirabilis) (morganii) as the cause of diseases classified elsewhere; I25.10 Atherosclerotic heart disease of native coronary artery without angina pectoris; J44.9 Chronic obstructive pulmonary disease, unspecified; R65.20 Severe sepsis without septic shock; R62.7 Adult failure to thrive; B96.20 Unspecified Escherichia coli [E. coli] as the cause of diseases classified elsewhere; F41.9 Anxiety disorder, unspecified; E66.9 Obesity, unspecified; Z66 Do not resuscitate; Z51.5 Encounter for palliative care; Z88.0 Allergy status to penicillin; Z88.2 Allergy status to sulfonamides; Z88.6 Allergy status to analgesic agent; Z88.8 Allergy status to other drugs, medicaments and biological substances; Z79.899 Other long term (current) drug therapy; Z86.718 Personal history of other venous thrombosis and embolism; Z82.49 Family history of ischemic heart disease and other diseases of the circulatory system; Z83.3 Family history of diabetes mellitus; Z68.30 Body mass index [BMI] 30.0-30.9, adult